=== PATIENT | female | born 1960 | race Caucasian/White ===

== ENCOUNTER → 2020-09-22 | Outpatient (REF) | payer OTHER, BC ==
[2020-09-22 16:39] LABS: APPEARANCE, URINE CLEAR (CLEAR); BACTERIA, URINE AUTO NEGATIVE (NEGATIVE); BILIRUBIN, URINE AUTO NEGATIVE (NEGATIVE); BLOOD, URINE BLOOD NEGATIVE (NEGATIVE); COLOR, URINE YELLOW (YELLOW); GLUCOSE, URINE (UA) AUTO NEGATIVE (NEGATIVE); KETONE, URINE AUTO NEGATIVE (NEGATIVE); LEUKOCYTE ESTERASE, URINE AUTO NEGATIVE (NEGATIVE); MUCUS, URINE SMALL (NEGATIVE); NITRITE, URINE AUTO NEGATIVE (NEGATIVE); PROTEIN, URINE AUTO NEGATIVE (NEGATIVE); RBC, URINE AUTO 1 /HPF (0-3); SPECIFIC GRAVITY URINE AUTO 1.016 (1.002-1.035); SQUAMOUS EPITHELIAL CELL UR AU 0 /HPF (0-6); UROBILINOGEN, URINE AUTO 0.2 mg/dL (0.0-2.0); WBC, URINE AUTO 1 /HPF (0-3)
[2020-09-22 16:57] LABS: C REACTIVE PROTEIN QUANTITATIV < 0.30 MG/DL (0.00-0.30); COMPLEMENT C3 123 MG/DL (90-180); COMPLEMENT C4 25 MG/DL (10-40); CPK CREATINE PHOSPHOKINASE 30 U/L (26-192); IRON (FE) 74 UG/DL (50-170); MAGNESIUM LEVEL 1.8 MG/DL (1.8-2.4); PHOSPHORUS LEVEL 2.8 MG/DL (2.5-4.9)
[2020-09-22 17:06] LABS: TOTAL 25(OH) VITAMIN D 43.4 NG/ML (30.0-100.0)
[2020-09-22 17:07] LABS: VITAMIN B12 LEVEL 793 PG/ML (247-911)
[2020-09-22 17:17] LABS: TOTAL PROTEIN,RANDOM URINE 13.7 MG/DL (0.0-12.0)
[2020-09-28 11:00] LABS: DRVV SCREEN 77.8 SEC
[2020-09-28 11:08] LABS: DRVV CONFIRM 53.8 SEC; LUPUS CONFIRM RATIO 1.5
[2020-09-28 11:09] LABS: NORMALIZED RATIO 1.33 (0.00-1.20)
[2020-09-28 19:08] LABS: COMPLEMENT TOTAL (CH50) > 60 U/mL (>41); HLA-B27 Negative (.)
== END ==
LOC: M SFHCRHEU 14:37
PROVIDERS: ATTEND Internal Medicine
DX: R76.8 Other specified abnormal immunological findings in serum (principal); M79.10 Myalgia, unspecified site; Z84.0 Family history of diseases of the skin and subcutaneous tissue; M06.4 Inflammatory polyarthropathy

== ENCOUNTER → 2020-11-25 | Outpatient (CLI) | payer OTHER ==
--- NOTE | 2020-12-05 09:16 | SLEEPHOME ---
DATE: 11/25/2020 ORDERED BY: Sarah Ruiz MD, rheumatology Diagnostic home sleep testing was performed due to concern for the obstructive sleep apnea syndrome. For testing, a nocturnal T3 respiratory monitoring device was used. Continuous record was made of pulse, oxygen saturation, air flow, chest and abdominal strain, and body position. Nine hours and 59 minutes of data were reviewed. There were 9 hours and 18 minutes marked as time in bed. During the interval marked time in bed, there were 152 respiratory events identified of 10 seconds in duration or greater for a respiratory event index of 16.3. The events were primarily obstructive. Baseline pulse rate 49, pulse rate range 41-77, baseline saturation was 92%, saturations fell to 71%, and testing was performed in both the supine and non-supine positions. IMPRESSION: Abnormal home sleep testing with repetitive respiratory events and oxygen desaturations to 71% with a respiratory event index of 16.3 is consistent with the obstructive sleep apnea syndrome. RECOMMENDATION: The patient should be encouraged to undergo a formal sleep evaluation.
== END ==
LOC: M SLEEP HO 07:00
PROVIDERS: ATTEND Internal Medicine
DX: R53.83 Other fatigue (principal); G47.33 Obstructive sleep apnea (adult) (pediatric)

== ENCOUNTER → 2021-06-27 | Outpatient (REF) | payer OTHER ==
[2021-06-27 17:42] LABS: FERRITIN 48 NG/ML (8-252); IRON (FE) 71 UG/DL (50-170); PERCENT SATURATION 23.2 % (13.2-45.0); TOTAL IRON BINDING CAPACITY 306 UG/DL (250-450); TOTAL PROTEIN 6.9 GM/DL (6.4-8.2)
[2021-06-28 13:16] LABS: ALBUMIN 4.17 GM/DL (3.29-5.55); ALBUMIN % 60.4 % (55.8-66.1); ALPHA-1-GLOBULIN % 5.3 % (2.9-4.9); ALPHA-1-GLOBULINS 0.37 GM/DL (0.17-0.41); BETA-1-GLOBULINS % 5.9 % (4.7-7.2); BETA-2-GLOBULINS % 4.3 % (3.2-6.5); GAMMA GLOBULIN % 11.1 % (11.1-18.8)
[2021-06-28 13:17] LABS: BETA-1-GLOBULINS 0.41 GM/DL (0.28-0.60); GAMMA GLOBULINS 0.77 GM/DL (0.65-1.58)
== END ==
LOC: M LAB REF 16:42
PROVIDERS: ATTEND Internal Medicine Nephrology
DX: N18.9 Chronic kidney disease, unspecified (principal); D63.1 Anemia in chronic kidney disease

== ENCOUNTER → 2021-11-10 | Outpatient (REF) | payer OTHER | LOC: M LAB REF 16:16 | PROVIDERS: ATTEND Ophthalmology | DX: H04.332 Acute lacrimal canaliculitis of left lacrimal passage (principal) ==

== ENCOUNTER → 2022-02-26 | Outpatient (REF) | payer OTHER ==
[2022-02-26 18:20] LABS: HEPATITIS B SURFACE ANTIBODY POSITIVE (POSITIVE); HEPATITIS B SURFACE ANTIGEN NEGATIVE (NEGATIVE); HEPATITIS C VIRUS ABY INDEX 0.1 INDEX (<0.8)
== END ==
LOC: M SFHCRHEU 11:50
PROVIDERS: ATTEND Internal Medicine
DX: Z11.59 Encounter for screening for other viral diseases (principal); M06.00 Rheumatoid arthritis without rheumatoid factor, unspecified site

== ENCOUNTER → 2022-03-20 | Outpatient (REF) | payer OTHER | LOC: M SFHCDERM 16:54 | PROVIDERS: ATTEND Nurse Practitioner Family | DX: D49.2 Neoplasm of unspecified behavior of bone, soft tissue, and skin (principal); L82.0 Inflamed seborrheic keratosis ==

== ENCOUNTER 2022-12-21 16:21 | Outpatient (CLI) | payer MEDICARE ==
[~2022-12-21] VITALS: Ht 162.6 cm; Wt 98.6 kg
[~2022-12-21 16:21] MED LIST: ALBUTEROL SULFATE 2.5MG/0.5ML INH NEB SOLN INH PRN; EPINEPHrine INJ 1 MG/ML 1ML AMP IM PRN; diphenhydrAMINE 50MG/ML VIAL IV PRN; methylPREDNISolone 125MG 2ML VIAL IV PRN
[2022-12-21 16:54] VITALS: BP 122/97; O2SAT 100
[2022-12-21] MEDS ORDERED: diphenhydrAMINE 50MG CAP PO ONE (17:05)
[2022-12-21] MEDS ORDERED: ACETAMINOPHEN TAB 650MG DOSE (2X325MG) PO ONE (17:05)
[2022-12-21] MEDS ORDERED: NS 1,000 ML IV SCH (17:05)
[2022-12-21] MEDS ORDERED: XARE20TA PO (17:29)
[2022-12-21] MEDS ORDERED: GABA-282 PO (17:29)
[2022-12-21] MEDS ORDERED: PRED20TA PO (17:29)
[2022-12-21] MEDS ORDERED: HYDR200T46 PO (17:30)
[2022-12-21] MEDS ORDERED: IBAN150T6 PO (17:31)
[2022-12-21] MEDS ORDERED: AMIO200T49 PO (17:33)
[2022-12-21] MEDS ORDERED: CARV6.25 PO (17:33)
[2022-12-21] MEDS ORDERED: ENTR1TAB PO (17:33)
[2022-12-21] MEDS ORDERED: VITA-243 PO (17:34)
[2022-12-21] MEDS ORDERED: CITRTAB18 PO (17:35)
[2022-12-21] MEDS ORDERED: VITA100018 PO (17:36)
[2022-12-21] MEDS ORDERED: THERTAB52 PO (17:36)
[2022-12-21] MEDS ORDERED: CIDA500T2 PO (17:39)
[2022-12-21] MEDS ORDERED: FOLI20CA PO (17:39)
[2022-12-21] MEDS ORDERED: POTA10808 PO (17:40)
[2022-12-21] MEDS ORDERED: ABATACEPT 750 MG OVER 30 MINUTES IV ONE ×2 (17:45)
[2022-12-21 17:50] VITALS: BP 125/78; O2SAT 97
[2022-12-21 18:30] VITALS: BP 122/75; O2SAT 97
[2022-12-21 18:55] VITALS: BP 122/75; TEMP 36.3; O2SAT 97
== END 2022-12-21 18:50 | disposition home or self-care (01) ==
LOC: M INFU 16:21
PROVIDERS: ATTEND Internal Medicine
DX: M06.00 Rheumatoid arthritis without rheumatoid factor, unspecified site (principal); Z88.1 Allergy status to other antibiotic agents; Z88.2 Allergy status to sulfonamides
CPT/HCPCS: 96365; J0129

== ENCOUNTER 2023-01-04 12:00 | Outpatient (CLI) | payer MEDICARE ==
[~2023-01-04] VITALS: Ht 162.6 cm; Wt 98.4 kg
[~2023-01-04 12:00] MED LIST changes: +AMIO200T49 PO; +CARV6.25 PO; +CIDA500T2 PO; +CITRTAB18 PO; +ENTR1TAB PO; +FOLI20CA PO; +GABA-282 PO; +HYDR200T46 PO; +IBAN150T6 PO; +POTA10808 PO; +PRED20TA PO; +THERTAB52 PO; +VITA-243 PO; +VITA100018 PO; +XARE20TA PO
[2023-01-04] MEDS ORDERED: diphenhydrAMINE 50MG PO PRIOR TO INFUSION PO ONE (12:10)
[2023-01-04] MEDS ORDERED: ACETAMINOPHEN 650MG PO PRIOR TO INFUSION PO ONE (12:10)
[2023-01-04] MEDS ORDERED: ABATACEPT 750 MG OVER 30 MINUTES IV ONE ×2 (12:15)
[2023-01-04 12:18] VITALS: BP 164/77; O2SAT 98
[2023-01-04 14:09] VITALS: BP 136/67; O2SAT 99
== END 2023-01-04 14:10 ==
LOC: M INFU 12:00
PROVIDERS: ATTEND Internal Medicine
DX: M06.00 Rheumatoid arthritis without rheumatoid factor, unspecified site (principal); Z88.1 Allergy status to other antibiotic agents; Z88.2 Allergy status to sulfonamides
CPT/HCPCS: 96365; J0129

== ENCOUNTER 2023-03-11 11:05 | Outpatient (CLI) | payer MEDICARE ==
[~2023-03-11] VITALS: Ht 162.6 cm; Wt 100.0 kg
[2023-03-11 11:30] VITALS: BP 180/76; O2SAT 98
[2023-03-11] MEDS ORDERED: ABATACEPT 750 MG OVER 30 MINUTES IV ONE ×2 (11:30)
[2023-03-11] MEDS ORDERED: ACETAMINOPHEN TAB 650MG DOSE (2X325MG) PO ONE (11:30)
[2023-03-11] MEDS ORDERED: diphenhydrAMINE 25MG CAP PO ONE (11:30)
[2023-03-11] MEDS ORDERED: NS 1,000 ML IV SCH (11:30)
[2023-03-11 12:50] VITALS: BP 141/66; O2SAT 98
== END 2023-03-11 12:50 | disposition home or self-care (01) ==
LOC: M INFU 11:05
PROVIDERS: ATTEND Internal Medicine
DX: M06.00 Rheumatoid arthritis without rheumatoid factor, unspecified site (principal); Z88.2 Allergy status to sulfonamides; Z88.1 Allergy status to other antibiotic agents
CPT/HCPCS: 96365; J0129

== ENCOUNTER 2023-04-09 10:59 | Outpatient (CLI) | payer MEDICARE ==
[~2023-04-09] VITALS: Ht 162.6 cm; Wt 99.1 kg
[2023-04-09] MEDS ORDERED: ABATACEPT 750 MG OVER 30 MINUTES IV ONE ×2 (11:25)
[2023-04-09] MEDS ORDERED: ACETAMINOPHEN TAB 650MG DOSE (2X325MG) PO ONE (11:25)
[2023-04-09] MEDS ORDERED: diphenhydrAMINE 50MG CAP PO ONE (11:25)
[2023-04-09 11:54] VITALS: BP 140/78; O2SAT 97
[2023-04-09 13:15] VITALS: BP 142/80; O2SAT 97
== END 2023-04-09 13:15 | disposition home or self-care (01) ==
LOC: M INFU 10:59
PROVIDERS: ATTEND Internal Medicine
DX: M06.00 Rheumatoid arthritis without rheumatoid factor, unspecified site (principal); Z88.2 Allergy status to sulfonamides; Z88.1 Allergy status to other antibiotic agents
CPT/HCPCS: 96365; J0129

== ENCOUNTER → 2024-11-05 | Outpatient (REF) | payer MEDICARE ==
[~2024-11-05] MED LIST changes: -ALBUTEROL SULFATE 2.5MG/0.5ML INH NEB SOLN INH PRN; -AMIO200T49 PO; +AMIO200T54 PO; -EPINEPHrine INJ 1 MG/ML 1ML AMP IM PRN; +GABA-1172 PO; -GABA-282 PO; +IBAN150T10 PO; -IBAN150T6 PO; +POTA10807 PO; -POTA10808 PO; -diphenhydrAMINE 50MG/ML VIAL IV PRN; -methylPREDNISolone 125MG 2ML VIAL IV PRN
== END ==
LOC: M SFHCRHEU 16:38
PROVIDERS: ATTEND Internal Medicine
DX: Z53.9 Procedure and treatment not carried out, unspecified reason (principal)